=== PATIENT | female | born 1960 | race Caucasian/White ===

== ENCOUNTER 2016-11-16 21:56 | Emergency (ER) | payer OTHER ==
[2016-11-16 22:28] VITALS: BP 155/91; PULSE 61; TEMP 97.7; BMI 27.4
--- NOTE | 2016-11-16 23:13 | PDOC ---
History of Present Illness - General History Source: Patient Exam Limitations: No Limitations - History of Present Illness Initial Comments: 11/16/16 23:20 The patient is a 56 year old female with significant past medical history of anemia and hypertension who presents to the ED for left shoulder pain. Patient reports a long history of left shoulder pain with no radiation. Denies trauma to the area. Took tylenol with no improvement. States her pain is worsen with movement. Patient is right hand dominant. Denies SOB, chest pain, jaw pain, palpitations, nausea or vomiting. The patient denies fever, chills, cough, abdominal pain, and diarrhea. Allergies: NKDA Social History: No alcohol, tobacco, or drug use reported. Past Surgical History: None reported PCP: Dr. Elissa Gayle <Dinorah Jacob - Last Filed: 11/16/16 23:20> - General History Source: Patient <CruzBari olivia - Last Filed: 11/17/16 00:13> - General Chief Complaint: Back Pain Stated Complaint: PAIN Time Seen by Provider: 11/16/16 23:09 Past History <Dinorah Jacob - Last Filed: 11/16/16 23:20> - Past Medical History Anemia: Yes (ANANTH;VIT B12 DEF) Asthma: No Cancer: No Cardiac Disorders: No CVA: No COPD: No CHF: No Dementia: No Diabetes: No GI Disorders: Yes (ARZATE'S ESOPHAGUS;HIATAL HERNIA;COLONIC POLYPS) Disorders: No HTN: Yes Hypercholesterolemia: No Liver Disease: No Seizures: No Thyroid Disease: No - Surgical History Abdominal Surgery: No Appendectomy: No Cardiac Surgery: No Cholecystectomy: No Lung Surgery: No Neurologic Surgery: No Orthopedic Surgery: No - Immunization History Immunization Up to Date: Yes - Psycho/Social/Smoking Cessation Hx Anxiety: No Suicidal Ideation: No Smoking History: Never smoked Have you smoked in the past 12 months: No Information on smoking cessation initiated: No Hx Alcohol Use: No Drug/Substance Use Hx: No Substance Use Type: None Hx Substance Use Treatment: No <Bari Barth - Last Filed: 11/17/16 00:13> - Past Medical History Allergies/Adverse Reactions: Allergies Allergy/AdvReac Type Severity Reaction Status Date / Time No Known Drug Allergies Allergy Verified 11/16/16 22:30 Home Medications: Ambulatory Orders Ferrous Sulfate [Iron] 325 mg PO PRN 09/24/15 Calcium Carbonate [Calcium] 500 mg PO DAILY 10/20/15 Vit B Comp with C/Calcium Carb [Gnp B-Complex Tablet] 1 tab .ROUTE DAILY Ibuprofen 800 mg PO TID #30 tablet 11/17/16 Methocarbamol [Robaxin -] 750 mg PO Q8H #30 tablet 11/17/16 Review of Systems - Review of Systems Able to Perform ROS?: Yes Comments:: 11/16/16 23:20 CONSTITUTIONAL: Absent: fever, no chills, no fatigue EYES: Absent: visual changes ENT: Absent: ear pain, no sore throat CARDIOVASCULAR: Absent: chest pain, no palpitations RESPIRATORY: Absent: cough, no SOB GI: Absent: abdominal pain, no nausea, no vomiting, no constipation, no diarrhea GENITOURINARY: Absent: dysuria, no frequency, no hematuria MUSCULOSKELETAL: +left shoulder pain Absent: back pain, no myalgia SKIN: Absent: rash NEURO: Absent: headache <Dinorah Jacob - Last Filed: 11/16/16 23:20> *Physical Exam - Vital Signs Last Vital Signs Temp Pulse Resp BP Pulse Ox 97.7 F 61 17 155/91 100 11/16/16 22:25 11/16/16 22:25 11/16/16 22:25 11/16/16 22:25 11/16/16 22:25 - Physical Exam Comments: 11/16/16 23:20 GENERAL: Well-appearing, well-nourished. No apparent distress. HEENT: Normocephalic, atraumatic. PERRL, EOM intact. CARDIOVASCULAR: Normal S1, S2. Regular rate and rhythm. PULMONARY: Clear to auscultation bilaterally. ABDOMEN: Soft, non-distended, non-tender. EXTREMITIES: Tenderness to the left trapezius muscle and lateral shoulder muscle. Elicits pain upon ROM. No gross deformities. SKIN: Warm, dry. No rash NEUROLOGICAL: No focal neurological deficits. <Dinorah Jacob - Last Filed: 11/16/16 23:20> - Vital Signs Last Vital Signs Temp Pulse Resp BP Pulse Ox 97.7 F 61 17 155/91 100 11/16/16 22:25 11/16/16 22:25 11/16/16 22:25 11/16/16 22:25 11/16/16 22:25 <Bari Barth - Last Filed: 11/17/16 00:13> Medical Decision Making - Medical Decision Making 11/17/16 00:13 Dr. Barth: The scribe's documentation has been prepared under my direction and personally reviewed by me in its entirery. I confirm that the note above accurately reflects all work, treatment, procedures, and medical decision making performed by me. <Bari Barth - Last Filed: 11/17/16 00:13> *DC/Admit/Observation/Transfer - Attestations Scribe Attestion: 11/16/16 23:21 Documentation prepared by Dinorah Jacob, acting as healthcare or medical for Bari Barth MD/DO. <Dinorah Jacob - Last Filed: 11/16/16 23:20> - Discharge Dispostion Admit: No <Bari Barth - Last Filed: 11/17/16 00:13> Diagnosis at time of Disposition: Calcific shoulder tendinitis Qualifiers: Laterality: left Qualified Code(s): M75.32 - Calcific tendinitis of left shoulder - Discharge Dispostion Disposition: HOME Condition at time of disposition: Stable - Referrals Referrals: Elissa Knott MD [Primary Care Provider] - - Patient Instructions Printed Discharge Instructions: DI for Calcific Tendonitis of the Shoulder Print Language: DJIBOUTIAN
[2016-11-16] MEDS ORDERED: KETOROLAC TROMETHAMINE 60 MG/2 ML VIAL IM ONE (23:14)
[2016-11-16] MEDS ORDERED: KETOROLAC TROMETHAMINE 60 MG/2 ML VIAL ONE (23:28)
[2016-11-17] MEDS ORDERED: PANTOPRAZOLE SODIUM 100 ML IVPB ONE (00:28)
== END 2016-11-17 00:25 | disposition home or self-care (01) ==
LOC: JER 21:56 → SUPCPDRO 21:56 → JER 11-17 00:25
PROC: 3E0233Z Introduction of Anti-inflammatory into Muscle, Percutaneous Approach (ICD-10-PCS; principal; 2016-11-16)
DX: M75.32 Calcific tendinitis of left shoulder (principal); I10 Essential (primary) hypertension; D50.9 Iron deficiency anemia, unspecified; D51.3 Other dietary vitamin B12 deficiency anemia
CPT/HCPCS: 71020-TC; 73030-TC-LT; 96372; 99282-25

== ENCOUNTER → 2017-02-03 | Day surgery (SDC) | payer OTHER ==
--- NOTE | 2017-02-04 15:44 | PATH ---
Surgical Pathology Report Patient Name: ANABEL ALBRECHT [facility]. Rec. #: [id number] /Age/Gender: 1960 (Age: 56) / F Account: [id number] Location: [facility] Taken: 02/03/2017 Received: 02/03/2017 Reported: 02/04/2017 Physicians: Brittny Joseph M.D. Specimen(s) Received A: LEFT BREAST SPECIMEN WITH CALCIFICATION B: LEFT BREAST SPECIMEN WITHOUT CALCIFICATIONS Clinical History Nonpalpable lesion Mammographic findings: Microcalcification suspicious Final Diagnosis A. BREAST, LEFT, WITH CALCIFICATIONS, STEREOTACTIC BIOPSY: BENIGN BREAST TISSUE SHOWING COLUMNAR CELL CHANGE AND MICROCYST FORMATION WITH ASSOCIATED CALCIFICATIONS. B. BREAST, LEFT, WITHOUT CALCIFICATIONS, STEREOTACTIC BIOPSY: BENIGN BREAST TISSUE SHOWING COLUMNAR CELL CHANGE AND MICROCYST FORMATION WITH ASSOCIATED CALCIFICATIONS. Electronically Signed Lani Saldivar M.D. Gross Description A. Received in formalin, labeled "left breast with calcifications," are multiple ashby-yellow, cylindrical portions of fibroadipose tissue ranging from 0.2-0.7 cm. in length and averaging 0.2 cm. in diameter. The specimen is submitted in toto in one cassette. B. Received in formalin, labeled "left breast without calcifications," are multiple ashby-yellow, cylindrical portions of fibroadipose tissue ranging from 0.2-0.7 cm. in length and averaging 0.2 cm. in diameter. The specimen is submitted in toto in 2 cassettes. Time to formalin fixation: 5 minutes Total formalin fixation time: Approximately 6 hours. [facility]/02/03/2017 [facility]/02/03/2017
== END | disposition home or self-care (01) ==
LOC: FMAMMOTONE 10:26
PROVIDERS: ATTEND Internal Medicine
PROC: 0HBU3ZX Excision of Left Breast, Percutaneous Approach, Diagnostic (ICD-10-PCS; principal; 2017-02-03)
DX: N64.89 Other specified disorders of breast (principal); R92.1 Mammographic calcification found on diagnostic imaging of breast
CPT/HCPCS: 19081; 87899; 88305-TC; A4648

== ENCOUNTER → 2022-05-27 | Day surgery (SDC) | payer OTHER | END | disposition home or self-care (01) | LOC: FMAMMOTONE 12:16 | PROVIDERS: ATTEND Registered Nurse | PROC: 0HBT3ZX Excision of Right Breast, Percutaneous Approach, Diagnostic (ICD-10-PCS; principal; 2022-05-27) | DX: N60.11 Diffuse cystic mastopathy of right breast (principal); N64.89 Other specified disorders of breast; R92.1 Mammographic calcification found on diagnostic imaging of breast | CPT/HCPCS: 19081; 76098-TC-FY; 88305-TC ==

== ENCOUNTER → 2023-07-28 | Day surgery (SDC) | payer OTHER | END | disposition home or self-care (01) | LOC: FMAMMOTONE 10:28 | PROVIDERS: ATTEND Family Medicine | PROC: 0H9U3ZX Drainage of Left Breast, Percutaneous Approach, Diagnostic (ICD-10-PCS; principal; 2023-07-28) | DX: N60.12 Diffuse cystic mastopathy of left breast (principal) | CPT/HCPCS: 19081; 76098-TC-FY; 87899; 88305-TC; A4648 ==